=== PATIENT | male | born 1980 | race Two or more races ===

== ENCOUNTER 2024-06-12 12:56 | Outpatient (REF) | payer BC, SELFPAY ==
--- NOTE | ~2024-06-12 | US_ITS ---
Procedure: Endovascular ablation of the left greater saphenous vein with VenaSeal HISTORY: Varicose veins INDICATIONS: Symptomatically varicose veins left lower extremity. Symptoms include pain, aching, PROCEDURE/FINDINGS: Informed consent was obtained following a discussion of the risks and benefits of the procedure with the patient. The patient was placed supine on the ultrasound procedure table. Preliminary ultrasound demonstrates dilated refluxing left greater saphenous vein. A site was marked on the left medial leg . The left leg was sterilely prepped and draped. Following the administration of 1% lidocaine for local anesthesia, the greater saphenous vein was accessed with a 21-gauge micropuncture needle under direct ultrasound guidance. The needle was exchanged for the transitional dilator over a 0.018 guidewire. A 0.035 guidewire was then advanced to the saphenofemoral junction. The VenaSeal sheath was then inserted over the wire and positioned 10 cm from the saphenofemoral junction. VenaSeal glue was then delivered along the length of the greater saphenous vein while retracting the catheter with compression at the saphenofemoral junction to prevent glue from traveling forward. The delivery device was removed and hemostasis was achieved with manual compression. Postprocedure ultrasound demonstrates successful occlusion of the treated veins with widely patent and compressible saphenofemoral junction. Patient tolerated the procedure well without immediate complication. US/US venaseal vein closure IMPRESSION: Successful VenaSeal ablation of the left greater saphenous vein. Follow-up ultrasound in 5-10 days Electronically signed by: Joshua Heath MD 06/12/2024 02:26 PM WILLIAN NELSON
[2024-06-12] MEDS: Lidocaine HCl 1 % MPF 5 ML VIAL SUBCUT (14:23)
--- OUTSIDE RECORDS SUMMARY | 2024-06-12 15:32 | XMS_ITS | Data Portability ---
Author Organization [place] - [facility], Allergy Address [address] [address] Assessment Encounter Date Assessment Date Assessment LastModified by Organization Details LastModified Time 03/26/2024 03/26/2024 Patient presents for reevaluation of asymmetric hearing loss affecting the left ear only at 8000 Hz only. 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 Internal auditory canal normal with no evidence of retrocochlear pathology. Physical exam unrevealing. Audiometric testing demonstrates stability of the hearing loss. Will drop to annual monitoring. Patient to call sooner with new or worsening otologic symptoms. Advised him to alert his PCP to the CP angle finding; defer on management, referrals, and further workup to PCP. [email or web address] Not available 03/26/2024 15:24:07 Plan of Treatment Reminders Order Date Submit Date Provider Last Modified By Organization Details Last Modified Time Details Appointments None record ed. Lab None record ed. Referral None record ed. Procedures None record ed. Surgeries None record ed. Imaging None record ed. Medication Orders None record ed. Patient TargetsNo targets recorded. Patient InstructionsNo instructions recorded. Reason for Referral None Reported. Results Created Date Observation Date Name Description Value Unit Range Abnormal Flag Note LastModifiedBy Organization Detail LastModifiedTime 03/30/20 24 audio gram No observ ation record ed. BARCODE Not Available 2023 14:33:51 Result Notes None recorded. Problems Name Problem SNOMED Code Status Onset Date Resolution Date Notes Provider Name and Address Organization Details Recorded Time Acute pharyngit is 126002480 Active 2022 Sore throat (acute) NOS; Note: Date Diagnosed : 3 2:06 PM (J02.9) Not Available [facility] 4 02:35:35 Sensorine ural hearing loss 01513810 Active 2022 Sensorine ural hearing loss, unilatera l, left ear, with unrestric maribel hearing on the contralat eral side; Note: Date Diagnosed : 01/08/2023 4:47 PM (H90.42) Not Available [facility] 4 02:35:41 Tinnitus of right ear 87326447659 08 Active 2022 Tinnitus, right ear; Note: Date Diagnosed : 01/08/2023 4:47 PM (H93.11) Not Available [facility] 4 02:35:44 Obstructi ve sleep apnea syndrome 33659355 Active 2022 Obstructi ve sleep apnea (adult) (pediatri c); Note: Date Diagnosed : 10/31/2022 4:01 PM (G47.33) Not Available [facility] 4 02:35:42 Allergic rhinitis 58434036 Active 2022 Allergic rhinitis, unspecifi ed; Note: Date Diagnosed : 10/31/2022 4:01 PM (J30.9) Not Available [facility] 4 02:35:38 Deviated nasal septum 165740412 Active 2022 Deviated nasal septum; Note: Date Diagnosed : 10/31/2022 4:01 PM (J34.2) Not Available [facility] 4 02:35:48 Otalgia of left ear 6090277863 Active 2022 Otalgia, left ear; Note: Date Diagnosed : 3 2:00 PM (H92.02) Not Available [facility] 4 02:35:40 Chronic pharyngit is 097088 Active 2023 Chronic pharyngit is; Note: Date Diagnosed : 08/23/2023 4:56 PM (J31.2) Not Available [facility] 4 02:35:40 Problem Notes None recorded. Procedures Surgical History Date Name Laterality Status Provider Name and Address Organization Details Recorded Time 03/26/2024 Air & Speech Audio with Tymps (41372, 23216 & 42141) completed EDILBERTO BENZ, AUD 100 [facility],[place] [address], [place], [address], [facility] - [facility] 03/26/2024 11:43:08 Imaging Results Imaging Date Name Status LastModified by Organleonard you Details LastModified Time 03/30/2024 audiogram completed BARCODE Information no t available 03/30/2024 14:33:51 Procedure Notes None recorded. Medical Equipment None Reported. Medications Name Sig Start Date Stop Date Status Note LastModified by Organization Details LastModified Time celecoxib 200 mg capsule TAKE 1 CAPSULE BY MOUTH EVERY DAY active Not Available Not Available No t Available cyclobenza lakshmi 10 mg tablet TAKE 1 TABLET BY MOUTH IN THE EVENING FOR 14 DAYS NEEDED active Not Available Not Available No t Available cetirizine 10 mg tablet TAKE 1 TABLET BY MOUTH EVERY DAY active Not Available Not Available No t Available epinephrin e 0.3 mg/0.3 mL injection, auto-injec tor active Medicatio n ID: [id number] Br and Name: epinephri ne Send Method: E-Prescri bed Subs Allowed: subs OK Medica tionGener icName: epinephri ne Not Available Not Available Not Available methylpred nisolone 4 mg tablets in a dose pack FOLLOW PACKAGE DIRECTION S active Not Available Not Available No t Available fluticason e propionate 50 mcg/actuat ion nasal spray,susp ension active Medicatio n ID: [id number] Br and Name: fluticaso ne propionat e Send Method: E-Prescri bed Subs Allowed: subs OK Medica tionGener icName: fluticaso ne propionat e Not Available Not Available Not Available ipratropiu m bromide 21 mcg (0.03 %) nasal spray active Medicatio n ID: [id number] Br and Name: ipratropi um bromide S end Method: E-Prescri bed Subs Allowed: subs OK Medica tionGener icName: ipratropi um bromide Not Available Not Available Not Available azelastine 205.5 mcg (0.15 %) nasal spray [place] 2 spray into both nostrils twice a day 2022 active Medicatio n ID: [id number] Du ration Value: 30 Brand Name: azelastin e Send Method: E-Prescri bed Subs Allowed: subs OK [facility] devi e Not Available Not Available Not Available Ozempic 0.25 mg or 0.5 mg (2 mg/3 mL) subcutaneo us pen injector INJECT 0.5MG SUBCUTANE OUSLY ONCE A WEEK ON THE SAME DAY OF THE WEEK active Not Available Not Available No t Available Vitals Date Recorded Body height Body mass index (BMI) Body weight Provider Name and Address Organization Details Last Updated DateTime 03/26/2024 180.34 cm 32.1 kg/m2 620072.25 g Rea Mena [place] - [facility] 03/26/2024 11:58:21 Social History None recorded. Functional Status None recorded. Mental Status None recorded. Family History Nothing Reported. Medical History No medical history recorded. Past Encounters Encounter ID Performer Location Encounter Start Date Encounter Closed Date Diagnosis/Indication Diagnosis SNOMED-CT Code Diagnosis ICD10 Code Diagnosis Note [id number] ERICA KITCHEN MD [facility] [address] [address] 03/26/2024 11:04:58 03/26/2024 12:08:18 Sensorineural hearing loss 02799765 H90.42 Audiologic al evaluation results: Right ear: DNT Left ear: Normal auditory thresholds sloping at 8lHz to a moderate SNHL with {{excellen t* good fa ir poor no t measurable }} speech discrimina tion. Tympanomet ry: Right Ear:{{Type A Type As Type Ad Type C Type C, shallow & rounded Ty pe B Type B with large volume Cou ld not maintain a hermetic seal DNT#} } Left Ear:{{Type A* Type As Type Ad Type C Type C, shallow & rounded Ty pe B Type B with large volume Cou ld not maintain a hermetic seal}} Health Concerns Section Related Observation LastModified by Organization Detai ls LastModified Time None Recorded Concern Status LastModified by Organization Details LastModified Time None Recorded Advance Directives Directive None Recorded Payers Encounter Date Sequence Insurance Name Policy Number Policy Bone Covered Member ID Bone Member ID Guarantor Name 03/26/2024 1 [place]: [place]AYMON ([place]O) Warren Domínguez [id number] Warren Domínguez Notes Date Note Type Note Provider Name and Address Organization Details Recorded Time 03/26/2024 text/html 43-year-old male with 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 He reports continued intermittent non-pulsatile tinnitus in the left ear, buzzing noise well tolerated with masking. Hearing subjectively unchanged. No otalgia nor otorrhea. ERICA KITCHEN MD [address] [place] [address], [place], [address], [facility] - [facility] 03/26/2024 17:02:31
--- OUTSIDE RECORDS SUMMARY | 2024-06-12 15:32 | XMS_ITS | Continuity of Care Document ---
Author Organization [place] - [facility], [facility] Address [address] [place] [address] Assessment Encounter Date Assessment Date Assessment LastModified [...] Organization Details Recorded Time Acute pharyngit is 987032888 Active 2022 Sore throat (acute) NOS; Note: Date Diagnosed : 3 2:06 PM (J02.9) Not Available [facility] 4 02:35:35 Sensorine ural hearing loss 48659861 Active 2022 Sensorine ural hearing loss, unilatera l, left ear, with unrestric maribel hearing on the contralat eral side; Note: Date Diagnosed : 01/08/2023 4:47 PM (H90.42) Not Available [facility] 4 02:35:41 Tinnitus of right ear 95246979278 08 Active 2022 Tinnitus, right ear; Note: Date Diagnosed : 01/08/2023 4:47 PM (H93.11) Not Available [facility] 4 02:35:44 Obstructi ve sleep apnea syndrome 80409266 Active 2022 Obstructi ve sleep apnea (adult) (pediatri c); Note: Date Diagnosed : 10/31/2022 4:01 PM (G47.33) Not Available [facility] 4 02:35:42 Allergic rhinitis 13637212 Active 2022 Allergic rhinitis, unspecifi ed; Note: Date Diagnosed : 10/31/2022 4:01 PM (J30.9) Not Available [facility] 4 02:35:38 Deviated nasal septum 265950471 Active 2022 Deviated nasal septum; Note: Date Diagnosed : 10/31/2022 4:01 PM (J34.2) Not Available [facility] 4 02:35:48 Otalgia of left ear 8906981664 Active 2022 Otalgia, left ear; Note: Date Diagnosed : 3 2:00 PM (H92.02) Not Available [facility] 4 02:35:40 Chronic pharyngit is 916298 Active 2023 Chronic pharyngit is; Note: Date Diagnosed : 08/23/2023 4:56 PM (J31.2) Not Available [facility] 4 02:35:40 Problem Notes None recorded. Procedures Surgical History Date Name Laterality Status Provider Name and Address Organization Details Recorded Time 03/26/2024 Air & Speech Audio with Tymps (59375, 27276 & 45775) completed EDILBERTO TUYET, AUD 100 [facility], [place], [address], [place] - [facility] 03/26/2024 11:43:08 Imaging Results None recorded. Procedure Notes None recorded. Medical Equipment None [...] injection, auto-injec tor active Medicatio n ID: [id number] Br and Name: epinephri ne Send Method: E-Prescri bed Subs Allowed: subs OK Medica tionGener icName: epinephri ne Not Available Not Available Not Available methylpred nisolone 4 mg tablets in a dose pack FOLLOW PACKAGE DIRECTION S active Not Available Not Available No t Available fluticason e propionate 50 mcg/actuat ion nasal spray,susp ension active Medicatio n ID: [id number] Br and Name: fluticaso ne propionat e Send Method: E-Prescri bed Subs Allowed: subs OK Medica tionGener icName: fluticaso ne propionat e Not Available Not Available Not Available ipratropiu m bromide 21 mcg (0.03 %) nasal spray active Medicatio n ID: [id number] Br and Name: ipratropi um bromide S end Method: E-Prescri bed Subs Allowed: subs OK Medica tionGener icName: ipratropi um bromide Not Available Not Available Not Available azelastine 205.5 mcg (0.15 %) nasal spray [place] 2 spray into both nostrils twice a day 2022 active Medicatio n ID: [id number] Du ration Value: 30 Brand Name: azelastin e Send Method: E-Prescri bed Subs Allowed: subs OK Medica tionGener icName: azelastin e Not Available Not Available Not Available [...] Updated DateTime 03/26/2024 180.34 cm 32.1 kg/m2 659978.25 g Rea Mena [place] - [facility] 03/26/2024 11:58:21 Social History None recorded. Functional Status None recorded. Mental Status None recorded. Family History Nothing Reported. Medical History No medical history recorded. Past Encounters Encounter ID Performer Location Encounter Start Date Encounter Closed Date Diagnosis/Indication Diagnosis SNOMED-CT Code Diagnosis ICD10 Code Diagnosis Note [id number] ERICA KITCHEN MD [facility] [address] [address] 03/26/2024 11:04:58 03/26/2024 12:08:18 Sensorineural hearing loss [id number] H90.42 Audiologic al evaluation results: Right ear: [...] by Organization Details LastModified Time None Recorded Payers Encounter Date Sequence Insurance Name Policy Number Policy Bone Covered Member ID Bone Member ID Guarantor Name 03/26/2024 1 YENNI: RAYMON (PPO) Warren Domínguez [id number] Warren Domínguez Notes Date Note Type Note Provider Name and Address Organization Details Recorded Time 03/26/2024 text/html 43-year-old male with 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 He reports continued intermittent non-pulsatile tinnitus in the left ear, buzzing noise well tolerated with masking. Hearing subjectively unchanged. No otalgia nor otorrhea. ERICA KITCHEN MD [address] [place] [address], [place], [address], [facility] - [facility] 03/26/2024 17:02:31
--- OUTSIDE RECORDS SUMMARY | 2024-06-12 15:32 | XMS_ITS | Continuity of Care Document ---
Author Organization [facility] ter Address [address] [place] [address]- Care Team Providers Care Arcade Attendant Name Role Phone Agnes ACKERMAN, Tiffany Field Primary Care Physician [id number] Date(s): 04/03/24 - 05/24/[address] [address]- Attending Physician: Fabricio Johnson MD Admitting Physician: Fabricio Johnson MD Referring Physician: Fabricio Johnson MD Encounter Type: Pre-Outpt Allergies, Adverse Reactions, Alerts No Known Allergies Medications fluticasone 50 mcg/inh nasal spray 1 sprays, Nares, Both, 2 times a day, # 16 Gm, 11 Refills, Maintenance, 09/26/22 10:36:00 AM EDT, [place], [id number], Partial fill upon patient request if the prescription is for a schedule II opioid drug., 1 sprays Nares, Both 2 times a day,x30 days Start Date: 09/26/22 Stop Date: 09/21/23 Status: Ordered Quantity: 16.0 Unit: g Repeat number: 12 Indication: Obstructive sleep apnea (adult) (pediatric) ipratropium nasal 21 mcg/inh spray 1 sprays = 21 mcg, Nares, Both, Daily at bedtime, # 30 mL, 3 Refills, Maintenance, 08/30/22 2:38:00 PM EDT, [id number], Partial fill upon patient request if the prescription is for a schedule II opioid drug., 1 sprays Nares, Both Daily at bedtime Start Date: 08/30/22 Status: Ordered Quantity: 30.0 Unit: mL Repeat number: 4 Indication: Obstructive sleep apnea (adult) (pediatric) Problem List Condition Confirmation Course Effective Dates Status H ealth Status Informant Leg cramps Confirmed Active Hyperlipidemia Confirmed Active Hypertension Confirmed Active Migraines Confirmed Active Obese class I Confirmed Active Obstructive sleep apnea Confirmed Active Delayed sleep phase syndrome Confirmed Active Fatty liver Confirmed Active Patient Care team information Care Team Personnel Name: Tiffany Alarcon MD, V Position: Reference Physician Member Role: PCP Address: [address] [place], [place] [address] [place] [address] [employer]: Name: Fabricio Johnson MD Position: [facility] Physician - Gastroenterology Med Service: Gastroenterology Member Role: Referring Physician Address: [address] [place] [address], [address] [facility] [place] [address]- [employer]: Care Team Related Persons Name: RACHEL DIAZ Insurance Providers Guarantor name: LARS DIAZ Health Plan Information #: 1 Payer: [employer] Member Number: [id number] Policy Number: NA Group Number: [id number] Health Plan Information #: 2 Payer: [employer] Member Number: [id number] Policy Number: NA Group Number: [id number]
== END 2024-06-12 12:57 | disposition home or self-care (01) ==
LOC: HO.US 12:56
PROVIDERS: PCP Family Medicine; Visit Provider Student in an Organized Health Care Education/Training Program
DX: I83.892 Varicose veins of left lower extremity with other complications (principal)
CPT/HCPCS: 36482; J2003

== ENCOUNTER → 2024-06-12 13:00 | Outpatient (BNV) | payer BC, SELFPAY | PROVIDERS: PCP Family Medicine; Visit Provider Student in an Organized Health Care Education/Training Program | DX: I83.892 Varicose veins of left lower extremity with other complications (principal) | CPT/HCPCS: 36482 ==

== ENCOUNTER → 2024-06-17 10:12 | Outpatient (BNV) | payer BC, SELFPAY | PROVIDERS: PCP Family Medicine; Visit Provider Radiology Diagnostic Radiology | DX: I82.812 Embolism and thrombosis of superficial veins of left lower extremity (principal) | CPT/HCPCS: 93971 ==

== ENCOUNTER 2025-02-18 12:44 | Outpatient (REF) | payer BC, SELFPAY ==
--- OUTSIDE RECORDS SUMMARY | 2025-02-18 17:31 | XMS_ITS | Encounter Summary ---
Author Organization [facility] Address [address] [place] [address] [place] [address] Phone Care Team Providers Care Public Welfare Director Name Role Phone Tiffany Alarcon MD Unavailable [phone] Tiffany Alarcon MD Primary Care Provider + Encounter Details Date Type Department Care Team (Latest Contact Info) Description 12/26/2022 Transcribe Orders Virtual Department [address] [place] [address] Johanny Montalvo PA-C [address] [place], [place] [id number] [email or web address] Fatty liver (Primary Dx); Elevated LFTs Social History Tobacco Use Types Packs/Day Years Used Date Smoking Tobacco: Never Smokeless Tobacco: Never Alcohol Use Standard Drinks/Week Comments Not Currently 0 (1 standard drink = 0.6 oz pure alcohol) stopped in 2021 (fatty liver diagnosis) Child or Family Care Answer Date Record ed Do you have problems with on e of the following making it difficult for you to work, study, or receive health care? No 09/20/2021 Education Answer Date Recorded Are you interested in help w ith more adult education (for example, completing high school, GED, job training, learning the Namibian language, technical skills, or developing parenting skills)? No 09/20/2021 Are you concerned about learning? Not on file 09/20/2021 No 09/20/2021 Yes 09/20/2021 Food Answer Date Recorded Within the past 6 months we worried whether our food would run out before we got money to buy more. Never True 09/20/2021 Within the past 6 months the food we bought just didn't last and we didn't have enough money to get more. Never True Residential Stability Answer Date Recor ded What is your housing situation today? I have sandra worthy 09/20/2021 How many times have you moved in the past 12 mon ths? One time 09/20/2021 Paying for Meds Answer Date Recorded Do you have trouble paying for medicines? No 09/20/2021 Paying Utility Bills Answer Date Record ed Do you have trouble paying your heating or elect ricity bill? No 09/20/2021 Transportation Answer Date Recorded Has the lack of transportati on kept you from medical appointments or from getting medications? No 09/20/2021 Unemployment Answer Date Recorded Are you currently unemployed or working on a part-time or temporary basis, and looking for work? No 09/20/2021 Digital Access Answer Date Recorded No 10/19/2022 No 10/19/2022 No 10/19/2022 Reliable internet access at home? Not on file 10/19/2022 Device with a working camera? Not on file Sex and Gender Information Value Date Recorded Sex Assigned at Not on file Legal Sex Male 1:46 PM EST Gender Identity Not on file Sexual Orientation Not on file documented as of this encounter Plan of Treatment Upcoming Encounters Date Type Department Care Team (Late st Contact Info) Description 03/10/2025 11:30 AM EDT Office Visit [facility] [address] [place] [address] Tiffany Alarcon MD 234 [facility], [address] [place] [address] [email or web address] documented as of this encounter Results * US LIVER WITH ELASTOGRAPHY (01/03/2023 11:18 AM EDT) Anatomical Region Laterality Modality Abdomen Ultrasound 01/04/2023 12:1 7 AM EDT Impressions 01/04/2023 12:20 AM EDT Hepatic steatosis. No focal hepatic lesion or biliary duct dilatation. The IQR to median ratio is less than 15% and the measure of liver stiffness is therefore acceptable. The median shear wave speed is 1.47 m/s. This is less than 1.7 m/s, which in the absence of other known clinical signs, rules out compensated advanced chronic liver disease. RECOMMENDATION: If there are known clinical signs of compensated advanced chronic liver disease, further testing for confirmation could be considered. [facility]I[employer]Y OF [facility]IOLOGISTS IN ULTRASOUND CONSENSUS: In the setting of elevated liver function tests, nonfasting, vascular congestion, etc., the stage of liver fibrosis may be overestimated. In some patients with NAFLD, the cut-off values for compensated advanced chronic liver disease may be lower. In causes other than viral hepatitis and NAFLD, the cut-off values are not well established. Narrative 01/04/2023 12:20 AM EDT US LIVER WITH ELASTOGRAPHY TECHNIQUE: Focused ultrasound evaluation of the liver. Volumetric sweeps were obtained and reviewed. COMPARISON: US ABDOMEN LIMITED RIGHT UPPER QUADRANT FINDINGS: LIVER: Increased echogenicity. No lesions. Portal vein patent with normal direction of flow. Hepatic veins patent. BILE DUCTS: No dilated intrahepatic biliary radicles. Common bile duct measures 3 mm. GALLBLADDER: No gallstones, wall thickening, or pericholecystic fluid. RIGHT KIDNEY: 13.3 cm. Normal echogenicity. No hydronephrosis. PANCREAS: No ductal dilatation. AORTA: Normal caliber where imaged. IVC: Normal proximally, not imaged distally. OTHER: None. ELASTOGRAPHY: Liver stiffness measurements were obtained in the right hepatic lobe on a Padilla ultrasound machine. 2D shear wave elastography technique was utilized following SRU guidelines. 10 valid measurements were obtained. Median shear wave speed is: 1.47 m/s. IQR to median ratio: 14%. Procedure Note Malinda Pinedo MD - 01/04/2023 US LIVER WITH ELASTOGRAPHY TECHNIQUE: Focused ultrasound evaluation of the liver. Volumetric sweeps wereobtained and reviewed. COMPARISON: US ABDOMEN LIMITED RIGHT UPPER QUADRANT FINDINGS: LIVER: Increased echogenicity. No lesions. Portal vein patent with normaldirection of flow. Hepatic veins patent. BILE DUCTS: No dilated intrahepatic biliary radicles. Common bile ductmeasures 3 mm. GALLBLADDER: No gallstones, wall thickening, or pericholecystic fluid. RIGHT KIDNEY: 13.3 cm. Normal echogenicity. No hydronephrosis. PANCREAS: No ductal dilatation. AORTA: Normal caliber where imaged. IVC: Normal proximally, not imaged distally. OTHER: None. ELASTOGRAPHY: Liver stiffness measurements were obtained in the righthepatic lobe on a Padilla ultrasound machine. 2D shear wave elastographytechnique was utilized following SRU guidelines. 10 valid measurements were obtained. Median shear wave speed is: 1.47m/s. IQR to median ratio: 14%. IMPRESSION: Hepatic steatosis. No focal hepatic lesion or biliary duct dilatation. The IQR to median ratio is less than 15% and the measure of liverstiffness is therefore acceptable. The median shear wave speed is 1.47 m/s. This is less than 1.7 m/s, whichin the absence of other known clinical signs, rules out compensatedadvanced chronic liver disease. RECOMMENDATION: If there are known clinical signs of compensated advanced chronic liverdisease, further testing for confirmation could be considered. SOCIETY OF RADIOLOGISTS IN ULTRASOUND CONSENSUS: In the setting of elevated liver function tests, nonfasting, vascularcongestion, etc., the stage of liver fibrosis may be overestimated. Insome patients with NAFLD, the cut-off values for compensated advancedchronic liver disease may be lower. In causes other than viral hepatitisand NAFLD, the cut-off values are not well established. Johanny Montalvo PA-C IMOlivia US ABDOMEN Final Result documented in this encounter Visit Diagnoses Diagnosis Fatty liver- Primary Other chronic nonalcoholic liver disease Elevated LFTs Other abnormal blood chemistry Fatty liver Other chronic nonalcoholic liver disease Elevated LFTs Other abnormal blood chemistry documented in this encounter Additional Health Concerns Assessment Noted Time PHQ-2 Depression Total Score: 1 09/27/19 23 2:51 PM EDT documented as of this encounter Care Teams Public Welfare Director Relationship Specialty Start Date End Date Tiffany Alarcon MD [address] [place] [address], [address] [place] [phone] [email or web address] PCP - General Family Medicine 12/26/22 Tiffany Alarcon MD [address] [place] [address] [address] [place] [address] [email or web address] Insurance Assigned Provider 08/31/23 documented as of this encounter Additional Source Comments The information contained in this document represents components of the legal health record. It is not the complete legal health record.[facility]
--- OUTSIDE RECORDS SUMMARY | 2025-02-18 17:31 | XMS_ITS | Encounter Summary ---
Author Organization [facility] Address [address] [place] [address] Phone Care Team Providers Care Lumber Press Operator Name Role Phone Tiffany Alarcon MD Unavailable [phone] Tiffany Alarcon MD Primary Care Provider + Reason for Referral * Outpatient Procedure - Closed Specialty Diagnoses / Procedures Referred By Janak andrews Referred To Contact Radiology Diagnoses Fatty liver Elevated LFTs Bloating Procedures NM Gastric Emptying Johanny Montalvo PA-C Phone: tel: fax: [email or web address] Referral ID Status Reason Start Date Expiration Date Visits Re quested Visits Authorized [id number] Closed 03/21/2023 1 1 Encounter Details Date Type Department Care Team (Latest Contact Info) Description 03/21/2023 Transcribe Orders Virtual Department [address] [place] [address] Johanny Montalvo PA-C [address] [place] [address] [email or web address] Fatty liver (Primary Dx); Elevated LFTs; Bloating Social History Tobacco Use Types Packs/Day Years [...] high school, GED, job training, learning the Vietnamese language, technical skills, or developing parenting skills)? [...] your housing situation today? I have sandra sing 09/20/2021 How many times have you moved in the past 12 sat th? One time 09/20/2021 Paying for Meds Answer [...] Upcoming Encounters Date Type Department Care Team (Gareth st Contact Info) Description 03/10/2025 11:30 AM EDT Office Visit [facility] Medicine [address] [place] [address] Tiffany Alarcon MD [address] [place] [address], [address] [place] [address] [email or web address] documented as of this encounter Results * NM GASTRIC EMPTYING SOLID PHASE (04/22/2023 1:23 PM EST) Anatomical Region Laterality Modality Abdomen, Pelvis Nuclear Medicine 04/22/2023 3:39 PM EST Impressions 04/22/2023 3:40 PM EST Gastric emptying study within normal limits. Narrative 04/22/2023 3:40 PM EST NM GASTRIC EMPTYING SOLID PHASE Radionuclide gastric emptying scan: COMPARISON: None TECHNIQUE: A dose of 1.0 mCi technetium 99m sulphur colloid was given orally mixed with a standard meal. Intermittent upright imaging of the abdomen was performed immediately, and at 1 and 2 hours, and at 4 hours if indicated. 100% of the standardized meal was consumed. FINDINGS: Gastric emptying was: 1 hr: 4.5% 2 hrs: 45.6% 4 hrs: 98.6% According to accepted international standards using this technique, median normal values for emptying are: 31% at 1 hr, 76% at 2 hrs, and 99% at 4 hours. 5th percentile values for emptying are: 10% at 1 hr, 40% at 2 hrs, and 90% at 4 hours. These values apply for ingestion of 50% or greater of the standard meal (PMID: 15391649) and approximate the normative emptying values of [employer] (PMID: [id number]). Procedure Note Malinda Pinedo MD - 04/22/2023 NM GASTRIC EMPTYING SOLID PHASE Radionuclide gastric emptying scan: COMPARISON: None TECHNIQUE: A dose of 1.0 mCi technetium 99m sulphur colloid was given orally mixedwith a standard meal. Intermittent upright imaging of the abdomen wasperformed immediately, and at 1 and 2 hours, and at 4 hours if indicated.100% of the standardized meal was consumed. FINDINGS: Gastric emptying was: 1 hr: 4.5% 2 hrs: 45.6% 4 hrs: 98.6% According to accepted international standards using this technique, mediannormal values for emptying are: 31% at 1 hr, 76% at 2 hrs, and 99% at 4 hours. 5th percentile values for emptying are: 10% at 1 hr, 40% at 2 hrs, and 90% at 4 hours. These values apply for ingestion of 50% or greater of the standard meal(PMID: 63979830) and approximate the normative emptying values of[facility] (PMID: [id number]). IMPRESSION: Gastric emptying study within normal limits. Johanny Montalvo PA-C IMG IN ABDOMEN Final Result documented in this encounter Visit Diagnoses Diagnosis Fatty liver- Primary Other chronic nonalcoholic liver disease Elevated LFTs Other abnormal blood chemistry Bloating Flatulence, eructation, and gas pain Fatty liver Other chronic nonalcoholic liver disease Elevated LFTs Other abnormal blood chemistry Bloating Flatulence, eructation, and gas pain documented in this encounter Additional Health Concerns Assessment Noted Time PHQ-2 Depression Total Score: 1 09/27/19 23 2:51 PM EDT documented as of this encounter Care Teams Lumber Press Operator Relationship Specialty Start Date End Date Tiffany Alarcon MD [address] [address] [email or web address] PCP - General Family Medicine 12/26/22 Tiffany Alarcon MD 234 [facility] [address] [place] [address] [email or web address] Insurance Assigned Provider 08/31/23 documented as of this encounter Additional Source Comments The information contained in this document represents components of the legal health record. It is not the complete legal health record.[facility]
--- OUTSIDE RECORDS SUMMARY | 2025-02-18 17:31 | XMS_ITS | Encounter Summary ---
Author Organization [facility] Address [address] [place] [address] [place] [address] Phone Care Team Providers Care Product Inspection Supervisor Name Role Phone Tiffany Alarcon MD Primary Care Provider + Tiffany Alarcon MD Unavailable [phone] Tiffany Alarcon MD Primary Care Provider + Encounter Details Date Type Department Care Team (Late st Contact Info) Description 05/31/2022 Procedure Pass [facility], [address] [phone] Social History Tobacco Use Types Packs/Day Years Used Date Smoking Tobacco: Never Smokeless Tobacco: Never Alcohol Use Standard Drinks/Week Comments Not Asked 0 (1 standard drink = 0.6 oz pur e alcohol) 2-3 drinks/week Child or Family Care Answer Date Record ed Do you have problems with on e of the following making it difficult for you to work, study, or receive health care? No 09/20/2021 Education Answer Date Recorded Are you interested in help w ith more adult education (for example, completing high school, GED, job training, learning the Mongolian language, technical skills, or developing parenting skills)? [...] basis, and looking for work? No 09/20/2021 Sex and Gender Information Value Date Recorded Sex Assigned at Not on file Legal Sex Male 1:46 PM EST Gender Identity Not on file Sexual Orientation Not on file documented as of this encounter Plan of Treatment Upcoming Encounters Date Type Department Care Team ([facility] st Contact Info) Description 03/10/2025 11:30 AM EDT Office Visit [facility] Medicine [address] [place] [address] Tiffany Alarcon MD [address] [place] [phone] documented as of this encounter Visit Diagnoses Not on filedocumented in this encounter Additional Health Concerns Assessment Noted Time PHQ-2 Depression Total Score: 2 09/21/19 22 1:01 PM EDT documented as of this encounter Care Teams Product Inspection Supervisor Relationship Specialty Start Date End Date Tiffany Alarcon MD PCP - General Family Medicine 09/08/21 12/25/22 Tiffany Alarcon MD 234 [facility] 7 [place] [address] [email or web address] PCP - General Family Medicine 12/26/22 Tiffany Alarcon MD [address] [place] [address], [facility] 7 [place] [address] [email or web address] Insurance Assigned Provider 08/31/23 documented as of this encounter Additional Source Comments The information contained in this document represents components of the legal health record. It is not the complete legal health record.[facility]
--- OUTSIDE RECORDS SUMMARY | 2025-02-18 17:31 | XMS_ITS | Patient Health Record ---
Author Organization [facility] Address [address] [place] [id number] Care Team Providers Care Last Dipper Name Role Phone Dima Kang Primary Care Provider UnavailJeremiah Duque Unavailable [phone] Allergies No Known Allergies Reason For Referral No Information Medications Medication SIG (Take, Route, Frequency, Duration) Notes Start Date End Date Status Methocarbamol - as directed Ac tive Melatonin Quick Dissolve 10 MG as directed Sublingual gummies Activ e Emgality 120 MG/ML ADMINISTER 1 ML UNDE R THE SKIN EVERY 28 DAYS Subcutaneous; Duration: 28 Active Problems Problem Type SNOMED Code ICD Code Onset Dates Problem Status W/U Status Risk Notes Problem Non-24 hour sleep-wake cycle (disorder) (964200604) Circadian rhythm sleep disorder, 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 Problem Circadian rhythm sleep disorder of shift work type (225716538) Circadian rhythm sleep disorder, 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 confirmed Problem Air leakage (40755145) Other air leak (J93.82) Active confirmed Problem Snoring (27621594) Snoring (R06.83) Active confirmed Problem Obstructive sleep apnea syndrome (59393145) RAMIRO (obstructive sleep apnea) (G47.33) Active confirmed Problem Obesity (675050694) Obesity (E66.9) Active confirmed Problem Apnea (1367949) Apnea (R06.81) Active confirmed Problem Idiopathic sleep related non-obstructive alveolar hypoventilation (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) Sleep related hypoxia (G47.34) Active confirmed exacerbation Problem Insomnia (042029873) Insomnia, unspecified type (G47.00) Active confirmed Problem Migraine (74952050) Migraine without status migrainosus, not intractable, unspecified migraine type (G43.909) Active confirmed Plan Of Treatment No Information Insurance Providers Payer Name Payer Address Payer Phone Subscriber Number Group Number Insured Name Patient Relationship to Insured Coverage Start Date Coverage End Date [facility] [address] [place] [address] [id number] Warren Domínguez Self - patient is the insured Medical (General) History Medical History History ICD Code Hypertension Surgical History Surgery Date(Month/Year) R index finger surgery 1996 L wrist surgery 2001 L knee meniscus surgery 2014 R elbow surgery x2 (tendon repair) 2018
--- OUTSIDE RECORDS SUMMARY | 2025-02-18 17:31 | XMS_ITS | Patient Health Record ---
Author Organization [facility] [address] [place] [address] [address] Address [address] [place] [id number] Care Team Providers Care Reeler Operator Name Role Phone Tamir ACKERMAN, Candida Primary Care Provider Marbella Delong MD, Bebe Unavailable [phone] Reason For Referral No Information Medications Medication SIG (Take, Route, Frequency, Duration) Notes Start Date End Date Status Botox 200 UNIT Chronic Migraine- 15 5units in 31sites over 7 specific head/neck muscle areas- frontal, temporal, occipital, trapezius, cervical paraspinal,etc. Discard 45units. q12 weeks Injection 08/25/2018 Active Amitriptyline HCl 25 MG take 50 mg PO qhs. Oral Active Anaprox DS 550 MG take 1 tablet PO wit h food as needed for severe headache every 12 hours, max 2 per day, not more than 3 days per week. Oral 06/25/2018 Activ e Problems Problem Type SNOMED Code ICD Code Onset Dates Problem Status W/U Status Risk Notes Problem New daily persistent headache (291305069128119 ) New daily persistent headache (NDPH) (G44.52) 8 Active confirmed Problem Primary thunderclap headache (294721585784767 ) Primary thunderclap headache (G44.53) 8 Active confirmed Problem Cerebral cysts (28028115) Cerebral cysts (G93.0) 9 Active confirmed Problem Visual disturbance (20160138) Unspecified visual disturbance (H53.9) 8 Active confirmed Problem Headache (68863518) Headache (R51) 8 Active confirmed Plan Of Treatment No Information Insurance Providers Payer Name Payer Address Payer Phone Subscriber Number Group Number Insured Name Patient Relationship to Insured Coverage Start Date Coverage End Date [facility] [address] [address] [place] [address] [id number] Warren Domínguez Self - patient is the insured Medical (General) History Surgical History Surgery Date(Month/Year) right forearm tendon repair PAST SurgHX Till05/21/2018 removal of Bursa PAST SurgHX Till05/21/2018 left knee injury PAST SurgHX Till05/21/2018 wrist cyst PAST SurgHX Till05/21/2018
--- OUTSIDE RECORDS SUMMARY | 2025-02-18 17:31 | XMS_ITS | Clinical Summary ---
Author Organization [facility] Address [address] [place] [address] [place] [phone] Phone Care Team Providers Care Chain Testing Machine Operator Name Role Phone Tiffany Alarcon MD Unavailable [phone] Tiffany Alarcon MD Primary Care Provider + Allergies Active Allergy Reactions Criticality Noted Date Comments Atorvastatin Hepatotoxicity Low 09/20/2021 Liver enzyme elevation Marijuana/Cannabinoid Shortness Of Breath High 09/26 SOB/throat tightness when around secondhand smoke Medications polyethylene glycol (MIRALAX) 17 gram/dose powderIndications :Chronic constipation Take 17 g by mouth daily. 289 g 1 2 Active EPINEPHrine (EPIPEN 2-ELIAS) 0.3 mg/0.3 mL auto-injectorIndi cations:Allergic reaction, sequela Inject 0.3 mL (0.3 mg total) into the muscle as needed for anaphylaxis . 2 each 2 3 Active cetirizine (ZYRTEC) 10 MG tabletIndications :Pruritus Take 1 tablet (10 mg total) by mouth daily. 30 tablet 11 4 Active tirzepatide, weight loss, (ZEPBOUND) 2.5 mg/0.5 mL subcutaneous penIndications:Cl ass 1 obesity due to excess calories without serious comorbidity with body mass index (BMI) of 33.0 to 33.9 in adult,RAMIRO (obstructive sleep apnea) Inject 0.5 mL (2.5 mg total) under the skin every 7 days for 4 doses. 2 mL 5 02/25/20 25 Active OZEMPIC 0.25 mg or 0.5 mg (2 mg/3 mL) subcutaneous injection penIndications:Pr ediabetes Inject 0.5 mg under the skin every 7 days. 3 mL 2 5 02/03/20 25 Discontinu ed(No longer taking) Active Problems Problem Noted Date Diagnosed Date Migraine without aura and wi thout status migrainosus, not intractable 09/21/2021 Assessment & Plan (09/21/2021 10:30 PM EDT): Doing well with emgality Refer to neuro Should continue w/ current neuro in [place] until established locally Prn excedrin for rare breakthrough Moderate mixed hyperlipidemia not requiring stat in therapy 09/21/2021 Assessment & Plan (09/21/2021 10:14 PM EDT): Check FLP Class 1 obesity due to exces s calories without serious comorbidity with body mass index (BMI) of 33.0 to 33.9 in adult 09/21/2021 Assessment & Plan (02/02/2025 3:53 PM EDT): Warren presents for BMI of 33.6. He was on Ozempic but insurance no longer covers this. He is requesting for additional medication. I wrote for Zepbound-to be used as directed-side effects discussed. I sent a message to my nurses regarding prior Auth for this medication. He will follow-up with his PCP in a month-he will go for labs prior to next visit. He will call if there are any other issues or concerns. He understands and agrees. Assessment & Plan (09/21/2021 10:14 PM EDT): DM and lipid screen Fatty liver 09/21/2021 Assessment & Plan (09/21/2021 10:31 PM EDT): Check LFT Chronic constipation 09/21/2021 Assessment & Plan (09/21/2021 10:32 PM EDT): Discussed mgmt Good hydration and high-fiber diet miralax daily, titrate for effect Ingrown toenail of both feet 09/21/2021 Assessment & Plan (09/21/2021 10:33 PM EDT): minmal inflammation today Daily soak and gentle lifting Goal to grow nail out past nail fold and cut straight across to prevent recurrences Check shoes for fit Lateral epicondylitis of right elbow 09/21/2021 Assessment & Plan (09/21/2021 10:27 PM EDT): Continue NSAID, ice, and support strap while avoiding aggravating activities Will return to ortho to discuss steroid injection if persisting, would advise ortho with surgery on elbow in past RAMIRO (obstructive sleep apnea) 09/21/2021 Assessment & Plan (02/02/2025 3:52 PM EDT): Warren has obstructive sleep apnea-he is currently on Ozempic but he notes that his insurance no longer is covering this med. I we will transition him over to Zepbound-2.5 mg injections once a week and I ordered repeat labs to be done prior to next visit. He will follow-up with his PCP in a month. He will call if there are any other issues or concerns or side effects to this medication. He understands and agrees. Assessment & Plan (09/21/2021 10:14 PM EDT): Working w/ pulm for mask fitting. Discussed local referral vs ongoing care w/ [facility]. Will continue w/ current pulm . Prediabetes 09/21/2021 Encounters Date Type Department Care Team Description 02/02/2025 3:53 PM EDT - 02/02/2025 11:59 PM EDT Hospital Encounter [facility] [address] [facility] [place] [address] Dav Luevano, DO Discharge Disposition: Home or Self Care 02/02/2025 3:30 PM EDT Office Visit [facility] [address] [place] [address] Dav Luevano, DO Class 1 obesity due to excess calories without serious comorbidity with body mass index (BMI) of 33.0 to 33.9 in adult (Primary Dx); RAMIRO (obstructive sleep apnea) 02/02/2025 Telephone [facility] [address] [place] [address] Suzette Coello Medication Prior Authorization (Zepbound 2.5 mg ) 02/02/2025 Telephone [facility] [address] [place] [address] Dav Luevano DO 01/19/2025 Telephone [facility] [address] [place] [address] Tiffany Alarcon MD Medication Prior Authorization (Prior Authorization for OZEMPIC 0.25 mg or 0.5 mg (2 mg/3 mL) subcutaneous injection pen) 12/25/2024 8:52 AM EDT - 12/25/2024 11:59 PM EDT Hospital Encounter [facility] [address] [place] [address] Johanny Enamorado FNP Discharge Disposition: Home or Self Care 12/22/[address] [address] Tiffany Alarcon MD Medication Refill from Last 3 Months Immunizations Immunization Administration Dates Next Due COVID-19 (Pre-03/18) Moderna Vaccine, mRNA, PF 04/28/2021,08/04/2020,07/07/2020 COVID-19 Pfizer Vaccine 5yr-11yr 03/12/2023 Influenza Quadrivalent Preservative Free IM 02/24,02/23/2020,03/08/2016 Influenza Quadrivalent w/ Preservative IM 2018,05/29/2017 Influenza, Unspecified Formulation 02/27/2023, Tdap 03/12/2023 Family History Medical History Relation Comments Diabetes Father Stroke Father Cancer Maternal Uncle 2 uncles with li miguel ángel cancer diagnosed in 2021. One with cirrhosis Hyperlipidemia Mother Hypertension Mother Colon cancer Neg Hx Colon polyps Neg Hx Prostate cancer Neg Hx Relation Status Comments Father Maternal Uncle Mother Alive Social History Tobacco Use Types Packs/Day Years Used Date Smoking Tobacco: Never Smokeless Tobacco: Never Tobacco Cessation:Counseling Given: Not Answered Alcohol Use Standard Drinks/Week Comments Not Currently 0 (1 standard drink = 0.6 oz pure alcohol) stopped in 2021 (fatty liver diagnosis) Child or Family Care Answer Date Record ed Do you have problems with on e of the following making it difficult for you to work, study, or receive health care? Childcare 09/24/2023 Education Answer Date Recorded Are you interested in more education? Not on gui e 09/21/2023 Are you concerned about learning? Not on file 09/21/2023 No 09/21/2023 No 09/21/2023 Food Answer Date Recorded Within the past 6 months we worried whether our food would run out before we got money to buy more. Sometimes True 024 Within the past 6 months the food we bought just didn't last and we didn't have enough money to get more. Often True 08/27 Residential Stability Answer Date Recor ded What is your housing situation today? I have sandra sing 09/24/2023 How many times have you move d in the past 12 months? Zero (I did not move) 09/24/2023 Paying for Meds Answer Date Recorded Do you have trouble paying for medicines? No 09/24/2023 Paying Utility Bills Answer Date Record ed Do you have trouble paying your heating or elect ricity bill? No 09/24/2023 Transportation Answer Date Recorded Has the lack of transportati on kept you from medical appointments or from getting medications? No 09/24/2023 Unemployment Answer Date Recorded Are you currently unemployed or working on a part-time or temporary basis, and looking for work? No 09/24/2023 Digital Access Answer Date Recorded No 09/24/2023 Yes 09/24/2023 Do you have reliable internet access at home? Ye s 09/24/2023 Do you have a device (e.g., phone, tablet, computer) with a working camera? Yes 09/24/2023 Intimate Partner Violence Answer Date R ecorded Denied Basic Needs Not on file 09/24/2023 In the past 12 months have y ou been in a relationship with a person who hurts, threatens, or tries to control you? No 09/24/2023 Worried food would run out Not on file 09/23 In the past 12 months have y ou been in a relationship with a person who hurts, threatens, or tries to control you? No 09/24/2023 Sex and Gender Information Value Date Recorded Sex Assigned at Not on file Legal Sex Male 1:46 PM EST Gender Identity Not on file Sexual Orientation Not on file Last Filed Vital Signs Vital Sign Reading Time Taken Comments Blood Pressure 120/80 02/02/2025 3:19 PM EDT Pulse 80 02/02/2025 3:19 PM EDT Temperature 36.3 C (97.3 F) 02/02/2025 3:19 PM EDT Respiratory Rate - - Oxygen Saturation 98% 02/02/2025 3:19 PM EDT Inhaled Oxygen Concentration - - Weight 98.9 kg (218 lb) 02/02/2025 3:19 PM EDT Height 171.5 cm (5' 7.52 ) 02/02/2025 3:19 PM ED T Body Mass Index 33.62 02/02/2025 3:19 PM EDT Plan of Treatment Upcoming Encounters Date Type Department Care Team (Late st Contact Info) Description 03/10/2025 11:30 AM EDT Office Visit [facility] [address] [place] [address] Tiffany Alarcon MD [address] [place] [address], [address] [place] [address] [email or web address] Health Maintenance Due Date Last Done Comments DEPRESSION SCREENING 09/23/2024 09/24/2023 INFLUENZA VACCINE (#1) 2024 , 02/27/2023, 03/07/2022, Additional history exists LIPID PANEL 09/01/2027 08/31/2022, 04/0 11/2022, 09/20/2021, Additional history exists SCREENING FOR DIABETES 02/03/2028 02/02/2025, 2023 Adult Td,Tdap Booster 03/12/2033 03/12/2023 HEPATITIS C SCREENING Completed 09/26/2022, 023 HIV ONE-TIME SCREENING (18-65 YEARS) Completed 09/26/2022 COVID-19 VACCINE Completed 02/24/2024, , 03/12/2023, Additional history exists SMOKING STATUS SCREENING (Once After 26 Yrs) Completed 02/02/2025 HEPATITIS A VACCINES Aged Out No long er eligible based on patient's age to complete this topic HIB VACCINES Aged Out No longer eligi ble based on patient's age to complete this topic MENINGOCOCCAL VACCINES (ACWY) Aged Out No longer eligible based on patient's age to complete this topic MENINGOCOCCAL VACCINES (B) Aged Out N o longer eligible based on patient's age to complete this topic PNEUMOCOCCAL VACCINES (0-49 years) Aged Out No longer eligible based on patient's age to complete this topic Medical Devices Not on file Procedures Procedure Name Priority Date/Time Associated Diagnosis Comments COMPREHENSIVE METABOLIC PANEL Routine 02/02/2025 3:54 PM EDT Class 1 obesity due to excess calories without serious comorbidity with body mass index (BMI) of 33.0 to 33.9 in adult RAMIRO (obstructive sleep apnea) CBC Routine 02/02/2025 3:54 PM EDT Class 1 obesity due to excess calories without serious comorbidity with body mass index (BMI) of 33.0 to 33.9 in adult RAMIRO (obstructive sleep apnea) CBC AND DIFFERENTIAL Routine 12/25/2024 9:16 AM EDT BRBPR (bright red blood per rectum) COMPREHENSIVE METABOLIC PANEL Routine 12/25/2024 9:16 AM EDT BRBPR (bright red blood per rectum) HEPATITIS C ANTIBODY, QUALITATIVE Routine 09/26/2022 3:39 PM EDT Need for hepatitis C screening test LIPID PANEL Routine 08/31/2022 11:29 AM EDT Moderate mixed hyperlipidemia not requiring statin therapy from Last 3 Months or Most Recently Relevant to Health Maintenance Results * (ABNORMAL) Comprehensive metabolic panel (02/02/2025 3:54 PM EDT) Only the most recent of2 resultswithin the time period is included. SODIUM 140 133 - 146 mmol/L [facility] POTASSIUM 3.7 3.3 - 5.1 mmol/L [facility] CHLORIDE 102 96 - 108 mmol/L [facility] CO2 26 21 - 35 mmol/L [facility] BUN 9 6 - 19 mg/dL [facility] CREATININE 1.00 0.5 - 1.5 mg/dL [facility] GLUCOSE 116(H) 70 - 99 mg/dL [facility] ALBUMIN 4.5 3.9 - 4.8 g/dL [facility] TOTAL PROTEIN 7.8 6.5 - 8.0 g/dL [facility] CALCIUM 9.8 8.4 - 10.3 mg/dL [facility] ALKALINE PHOSPHATASE 80 39 - 117 U/L [facility] TOTAL BILIRUBIN 0.4 0.0 - 1.2 mg/dL [facility] AST 33 0 - 37 U/L [facility] ALT 35 0 - 40 U/L [facility] GLOBULIN 3.3 1 - 4.8 g/dL [facility] EGFR 96 >59 mL/min/1.7 3m2 [facility] Comment:Estimated glomerular filtration rate calculated using the CKD-EPI refit equation. ANION GAP 16 10 - 20 mmol/L [facility] Blood 02/02/2025 3:54 PM EDT 02/02/2025 3:58 PM EDT Dav Luevano DO LAB BLOOD ORDERABLES Final Resul t Performing Organization Address City/State/[facility] Co de Phone Number [facility] [address] [place] [address] * CBC (02/02/2025 3:54 PM EDT) WBC 8.02 4.00 - 11.00 K/uL [facility] RBC 4.87 4.50 - 5.90 M/uL [facility] HGB 14.1 13.5 - 17.5 g/dL [facility] HCT 43.7 41.0 - 53.0 % [facility] PLT 289 150 - 450 K/uL [facility] MCV 89.7 80.0 - 100.0 fL [facility] MCH 29.0 27.0 - 31.0 pg [facility] MCHC 32.3 32.0 - 36.0 g/dL [facility] RDW 12.9 11.5 - 14.5 % [facility] MPV 11.6 8.4 - 12.0 fL [facility] NRBC 0.00 0.00 /100 WBCs [facility] ABSOLUTE NRBC 0.00 0.00 K/uL [facility] Blood 02/02/2025 3:54 PM EDT 02/02/2025 3:58 PM EDT us Dav Luevano DO LAB BLOOD ORDERABLES Final Resul t [facility] [address] [place] [address] * (ABNORMAL) CBC and differential (12/25/2024 9:16 AM EDT) WBC 6.94 4.00 - 11.00 K/uL [facility] RBC 5.03 4.50 - 5.90 M/uL [facility] HGB 14.5 13.5 - 17.5 g/dL [facility] HCT 45.6 41.0 - 53.0 % [facility] PLT 284 150 - 450 K/uL [facility] MCV 90.7 80.0 - 100.0 fL [facility] MCH 28.8 27.0 - 31.0 pg [facility] MCHC 31.8(L) 32.0 - 36.0 g/dL [facility] RDW 12.8 11.5 - 14.5 % [facility] MPV 11.0 8.4 - 12.0 fL [facility] NRBC 0.00 0.00 /100 WBCs [facility] ABSOLUTE NRBC 0.00 0.00 K/uL [facility] DIFF METHOD Auto [facility] NEUTS 62.8 48.0 - 76.0 % [facility] LYMPHS 27.7 18.0 - 41.0 % [facility] MONOS 7.6 4.0 - 11.0 % [facility] EOS 1.0 0.0 - 5.0 % [facility] BASOS 0.6 0.0 - 1.5 % [facility] Granulocytes, immature (%) 0.3 0.0 - 0.9 % [facility] ABSOLUTE NEUTS 4.36 1.92 - 7.60 K/uL [facility] ABSOLUTE LYMPHS 1.92 0.72 - 4.10 K/uL [facility] ABSOLUTE MONOS 0.53 0.16 - 1.10 K/uL [facility] ABSOLUTE EOS 0.07 0.00 - 0.50 K/uL [facility] ABSOLUTE BASOS 0.04 0.00 - 0.15 K/uL [facility] Granulocytes, immature 0.02 0.00 - 0.09 K/uL [facility] Blood 12/25/2024 9:1 6 AM EDT 12/25/2024 9:24 AM EDT us Johanny nEamorado TRAVELING PASSENGER AGENT LAB BLOOD ORDERABLES Final Re sult Performing Organization Address City/[facility]/ZIP Co de Phone Number [address] [address] * Hepatitis C antibody, qualitative (09/26/2022 3:39 PM EDT) HCV NON-REACTIV E NON-REACTI VE [facility] Blood 09/26/2022 3:39 PM EDT 09/26/2022 3:41 PM EDT us Tiffany Alarcon MD LAB BLOOD ORDERABLES Fin al Result Performing Organization Address City/[facility]/ZIP Co de Phone Number [address] [address] * (ABNORMAL) Lipid panel (08/31/2022 11:29 AM EDT) HDL 32 mg/dL [facility] Comment: Interpretation <40 mg/dL: Low HDL cholesterol (major risk factor for CHD) Greater than or equal to 60 mg/dL: High HDL cholesterol ( negative risk factor for CHD) HDL - cholesterol is affected by a number of factors, e.g. smoking, excerise, hormones, sex and age. CHOLESTEROL 232 0 - 240 mg/dL [facility] TRIGLYCERIDES 222(H) 30 - 160 mg/dL [facility] LDL 156(H) 50 - 129 mg/dL [facility] Comment: LDL levels in terms of risk for coronary heart disease: <100 mg/dL: Optimal 100-129 mg/dL: Near or above optimal 130-159 mg/dL: Borderline high 160-189 mg/dL: High >190 mg/dL: Very High CARDIAC RISK RATIO 7.3(H) 3.4 - 5.0 C [facility] Blood 08/31/2022 11:2 9 AM EDT 08/31/2022 11:39 AM EDT us Tiffany Alarcon MD LAB BLOOD ORDERABLES Fin al Result [facility] [address] [place] [address] from Last 3 Months or Most Recently Relevant to Health Maintenance Insurance [facility] PPO EPO [facility] PPO EPO [facility]PO [facility]PO [facility] EPO [facility] PPO EPO Care Teams Chain Testing Machine Operator Relationship Specialty Start Date End Date Tiffany Alarcon MD [address] [facility] [address] [place] [address] [email or web address] PCP - General Family Medicine 12/26/22 Tiffany Alarcon MD [address] [place] [address] [address] [place] [address] [email or web address] Insurance Assigned Provider 08/31/23 Additional Source Comments The information contained in this document represents components of the legal health record. It is not the complete legal health record.[facility]
--- OUTSIDE RECORDS SUMMARY | 2025-02-18 17:31 | XMS_ITS | Encounter Summary ---
Author Organization [facility] Address [address] [place] [address] [place] [address] Phone Care Team Providers Care Heating And Refrigeration Inspector Name Role Phone Tiffany Alarcon MD Unavailable [phone] Tiffany Alarcon MD Primary Care Provider + Encounter Details Date Type Department Care Team (Latest Contact Info) Description 03/21/2023 Transcribe Orders [facility] [address] [address] Johanny Montalvo PA-C [address], [address] [place] [address] Fatty liver (Primary Dx); Elevated LFTs; Bloating [...] high school, GED, job training, learning the Turkish language, technical skills, or developing parenting skills)? [...] you moved in the past 12 sat ths? One time 09/20/2021 Paying for Meds [...] Upcoming Encounters Date Type Department Care Team ([facility] Contact Info) Description 03/10/2025 11:30 AM EDT Office Visit [facility] [address] [place] [address] Tiffany Alarcon MD [address] [place] [address], [address] [place] [address] documented as of this encounter Results * PT-INR (03/21/2023 9:27 AM EDT) PT 11.2 10.2 - 12.9 sec [facility] INR 1.0 0.9 - 1.1 [facility] Comment:Therapeutic range fo r oral Vitamin K antagonists: 2.0-3.5 Blood 03/21/2023 9:27 AM EDT 03/21/2023 9:32 AM EDT Johanny Montalvo PA-C LAB BLOOD ORDERABLES Final Resu lt Performing Organization Address [facility]/ZIP Co de Phone Number [address] [address] * Hemoglobin A1c (03/21/2023 9:27 AM EDT) HEMOGLOBIN A1C 5.6 4.3 - 5.8 % [facility] Blood 03/21/2023 9:27 AM EDT 03/21/2023 9:32 AM EDT Johanny Montalvo PA-C LAB BLOOD ORDERABLES Final Resu lt Performing Organization Address [facility] Co de Phone Number [address] [address] * (ABNORMAL) Comprehensive metabolic panel (03/21/2023 9:27 AM EDT) SODIUM 141 133 - 146 mmol/L [facility] POTASSIUM 4.1 3.3 - 5.1 mmol/L [facility] CHLORIDE 102 96 - 108 mmol/L [facility] CO2 29 21 - 35 mmol/L [facility] BUN 9 6 - 19 mg/dL [facility] CREATININE 0.80 0.5 - 1.5 mg/dL [facility] GLUCOSE 120(H) 70 - 99 mg/dL [facility] ALBUMIN 4.6 3.9 - 4.8 g/dL [facility] TOTAL PROTEIN 8.0 6.5 - 8.0 g/dL [facility] CALCIUM 9.7 8.4 - 10.3 mg/dL [facility] ALKALINE PHOSPHATASE 90 39 - 117 U/L [facility] TOTAL BILIRUBIN 0.4 0.0 - 1.2 mg/dL [facility] AST 49(H) 0 - 37 U/L [facility] ALT 78(H) 0 - 40 U/L [facility] GLOBULIN 3.4 1 - 4.8 g/dL [facility] EGFR 114 >59 mL/min/1.7 3m2 [facility] Comment:Estimated glomerular filtration rate calculated using the CKD-EPI refit equation. ANION GAP 14 10 - 20 mmol/L [facility] Blood 03/21/2023 9:27 AM EDT 03/21/2023 9:32 AM EDT us Johanny Montalvo PA-C LAB BLOOD ORDERABLES Final Resu lt Performing Organization Address City/[facility] Co de Phone Number [address] [address] * (ABNORMAL) CBC (03/21/2023 9:27 AM EDT) WBC 6.48 4.00 - 11.00 K/uL [facility] RBC 4.99 4.23 - 5.82 M/uL [facility] HGB 14.2 13.4 - 17.5 g/dL [facility] HCT 45.0 37.0 - 51.0 % [facility] PLT 270 140 - 430 K/uL [facility] MCV 90.2 78.0 - 97.0 fL [facility] MCH 28.5 25.0 - 33.0 pg [facility] MCHC 31.6(L) 32.0 - 36.0 g/dL [facility] RDW 12.6 11.0 - 15.0 % [facility] MPV 11.1 8.4 - 12.8 fl [facility] Blood 03/21/2023 9:27 AM EDT 03/21/2023 9:32 AM EDT Johanny Montalvo PA-C LAB BLOOD ORDERABLES Final Resu lt Performing Organization Address [facility]/ZIP Co de Phone Number [address] [address] * AFP (non-maternal specimens) (03/21/2023 9:27 AM EDT) AFP (NON-MATERNAL) 2.0 <7.9 ng/mL [facility] Comment: Test Methodology Lennox [id number] Patient results determined by assays using different manufacturers or methods may not be comparable. Blood 03/21/2023 9:27 AM EDT 03/21/2023 9:32 AM EDT us Johanny Montalvo PA-C LAB BLOOD ORDERABLES Final Resu lt [facility] [address] [place] [address] documented in this encounter Visit Diagnoses Diagnosis Fatty liver- Primary Other chronic nonalcoholic liver disease Elevated LFTs Other abnormal blood chemistry Bloating Flatulence, eructation, and gas pain documented in this encounter Additional Health Concerns Assessment Noted Time PHQ-2 Depression Total Score: 1 09/27/19 23 2:51 PM EDT documented as of this encounter Care Teams Heating And Refrigeration Inspector Relationship Specialty Start Date End Date Tiffany Alarcon MD [address] [place] [address] [address] [place] [address] PCP - General Family Medicine 12/26/22 Tiffany Alarcon MD [address] [place] [address] 7 [place] [address] Insurance Assigned Provider 08/31/23 documented as of this encounter Additional Source Comments The information contained in this document represents components of the legal health record. It is not the complete legal health record.[facility]
--- OUTSIDE RECORDS SUMMARY | 2025-02-18 17:31 | XMS_ITS | Encounter Summary ---
Author Organization [facility] Address [address] [place] [address] [place] [address] Phone Care Team Providers Care City Secretary Name Role Phone Tiffany Alarcon MD Unavailable [phone] Tiffany Alarcon MD Primary Care Provider + Encounter Details Date Type Department Care Team (Latest Contact Info) Description 09/20/2023 Transcribe Orders [facility] Laboratory [address]nd [place] [address] Romeo Read MD [address] [facility] 2 [place] [address] [email or web address] Moderate mixed hyperlipidemia not requiring statin therapy (Primary Dx); Fatty liver Social History Tobacco Use Types Packs/Day Years [...] housing situation today? I have sandra worthy 09/24/2023 How many times have you move [...] Description 03/10/2025 11:30 AM EDT Office Visit [facility] Medicine [address] [place] [address] Tiffany Alarcon MD [address] [facility], [address] [place] [address] [email or web address] documented as of this encounter Results * (ABNORMAL) Comprehensive metabolic panel (09/20/2023 9:01 AM EDT) SODIUM 142 133 - 146 mmol/L [facility] POTASSIUM 4.2 3.3 - 5.1 mmol/L [facility] CHLORIDE 105 96 - 108 mmol/L [facility] CO2 25 21 - 35 mmol/L [facility] BUN 10 6 - 19 mg/dL [facility] CREATININE 0.70 0.5 - 1.5 mg/dL [facility] GLUCOSE 94 70 - 99 mg/dL [facility] ALBUMIN 4.3 3.9 - 4.8 g/dL [facility] TOTAL PROTEIN 7.3 6.5 - 8.0 g/dL [facility] CALCIUM 9.4 8.4 - 10.3 mg/dL [facility] ALKALINE PHOSPHATASE 80 39 - 117 U/L [facility] TOTAL BILIRUBIN 0.5 0.0 - 1.2 mg/dL [facility] AST 54(H) 0 - 37 U/L [facility] ALT 105(H) 0 - 40 U/L [facility] GLOBULIN 3.0 1 - 4.8 g/dL [facility] EGFR 118 >59 mL/min/1.7 3m2 [facility] Comment:Estimated glomerular filtration rate calculated using the CKD-EPI refit equation. ANION GAP 16 10 - 20 mmol/L [facility] Blood 09/20/2023 9:01 AM EDT 09/20/2023 9:07 AM EDT us Romeo Read MD LAB BLOOD ORDERABLES Final Result [facility] [address] [place] [address] * (ABNORMAL) CBC (09/20/2023 9:01 AM EDT) WBC 7.50 4.00 - 11.00 K/uL [facility] RBC 5.02 4.23 - 5.82 M/uL [facility] HGB 14.2 13.4 - 17.5 g/dL [facility] HCT 44.5 37.0 - 51.0 % [facility] PLT 231 140 - 430 K/uL [facility] MCV 88.6 78.0 - 97.0 fL [facility] MCH 28.3 25.0 - 33.0 pg [facility] MCHC 31.9(L) 32.0 - 36.0 g/dL [facility] RDW 13.1 11.0 - 15.0 % [facility] MPV 11.4 8.4 - 12.8 fl [facility] Blood 09/20/2023 9:01 AM EDT 09/20/2023 9:07 AM EDT us Romeo Read MD LAB BLOOD ORDERABLES Final Result Performing Organization Address City/State/[facility] Co de Phone Number [facility] [address] [place] [address] documented in this encounter Visit Diagnoses Diagnosis Moderate mixed hyperlipidemia not requiring statin therapy- Primary Fatty liver Other chronic nonalcoholic liver disease documented in this encounter Additional Health Concerns Assessment Noted Time PHQ-2 Depression Total Score: 1 09/27/19 23 2:51 PM EDT documented as of this encounter Care Teams City Secretary Relationship Specialty Start Date End Date Tiffany Alarcon MD [address] [facility], [facility] [address] [place] [address] PCP - General Family Medicine 12/26/22 Tiffany Alarcon MD [address] [facility], [address] [place] [address] Insurance Assigned Provider 08/31/23 documented as of this encounter Additional Source Comments The information contained in this document represents components of the legal health record. It is not the complete legal health record.[facility]
--- OUTSIDE RECORDS SUMMARY | 2025-02-18 17:31 | XMS_ITS | Encounter Summary ---
Author Organization [facility] Address [address] [place] [address] [place] [address] Phone Care Team Providers Care [employer] Information [employer] Officer Name Role Phone Tiffany Alarcon MD Unavailable [phone] Tiffany Alarcon MD Primary Care Provider + Reason for Referral * Molecular Pathology - Closed Specialty Diagnoses / Procedures Referred By Janak andrews Referred To Contact Diagnoses Fatty liver Elevated LFTs Procedures Hemochromatosis Gene Analysis Johanny Montalvo PA-C Phone: tel: fax: [email or web address] Referral ID Status Reason Start Date Expiration Date Visits Re quested Visits Authorized [id number] Closed 12/26/2022 12/26/2023 1 1 Encounter Details Date Type Department Care Team (Latest Contact Info) Description 12/26/2022 Transcribe Orders [facility] Laboratory [address] [address] Johanny Montalvo PA-C [address] [place] [address] [email or web address] Fatty liver (Primary Dx); Elevated LFTs Social [...] high school, GED, job training, learning the Bulgarian language, technical skills, or developing parenting skills)? [...] Upcoming Encounters Date Type Department Care Team ([facility] st Contact Info) Description 03/10/2025 11:30 AM EDT Office Visit [facility] Family Medicine [address] [place] [address] Tiffany Alarcon MD [address] [facility], [address] [place] [address] [email or web address] documented as of this encounter Results * Ferritin (12/26/2022 10:14 AM EDT) FERRITIN 165 30 - 400 ug/L [facility] Blood 12/26/2022 10:1 4 AM EDT 12/26/2022 10:23 AM EDT us Johanny Montalvo PA-C LAB BLOOD ORDERABLES Final Resu lt Performing Organization Address [facility]/ZIP Co de Phone Number [address] [address] * TSH (12/26/2022 10:14 AM EDT) TSH 1.19 0.27 - 4.20 uIU/mL [facility] Blood 12/26/2022 10:1 4 AM EDT 12/26/2022 10:23 AM EDT us Johanny Montalvo PA-C LAB BLOOD ORDERABLES Final Resu lt Performing Organization Address [facility] Co de Phone Number [address] [address] * Iron and iron binding capacity (12/26/2022 10:14 AM EDT) IRON 83 45 - 160 ug/dL [facility] IRON BINDING CAPACITY 363 228 - 428 ug/dL [facility] TRANSFERRIN SATURAT. 23 20 - 55 % [facility] Blood 12/26/2022 10:1 4 AM EDT 12/26/2022 10:23 AM EDT Johanny Montalvo PA-C LAB BLOOD ORDERABLES Final Resu lt Performing Organization Address City/[facility]/ZIP Co de Phone Number [facility] [address] [place] [address] * Lipase (12/26/2022 10:14 AM EDT) LIPASE 39 16 - 63 U/L [facility] Blood 12/26/2022 10:1 4 AM EDT 12/26/2022 10:23 AM EDT us Johanny Montalvo PA-C LAB BLOOD ORDERABLES Final Resu lt [facility] [address] [place] [address] * Hemochromatosis Gene Analysis (12/26/2022 10:14 AM EDT) HFE Gene analysis SEE NOTE 3 05:22 PM [facility] DPT OF LAB MED AND PAT+ Comment: (NOTE) Test Result Flag Unit RefValue Hereditary Hemochromatosis HFE Test Result Summary NEGATIVE Result SEE NOTE C282Y: Not detected. H63D: Not detected. Interpretation SEE NOTE This result reduces the risk but does not rule out either a diagnosis of or predisposition for hereditary hemochromatosis (HH). This assay does not rule out the presence of other disease-causing variants in the HFE gene or in other genes associated with hemochromatosis. Non-HFE-HH causes should also be considered. These results should be interpreted in the context of clinical findings, family history, and other laboratory testing (e.g. serum transferrin-iron saturation and serum ferritin). Genetic testing and other laboratory testing of an affected family member can determine if this result is of predictive value for this individual. A genetic consultation may be of benefit. ADDITIONAL INFORMATION An online research opportunity called GenomeConnect (genomeconnect.org), a project of [employer], is available for the recipient of this genetic test. This patient registry collects de-identified genetic and health information to advance the knowledge of genetic variants. [facility] is a collaborator of [employer]. This may not be applicable for all tests. Test results should be interpreted in the context of clinical findings, family history, and other laboratory data. Misinterpretation of results may occur if the information provided is inaccurate or incomplete. Rare polymorphisms exist that could lead to false-negative or false-positive results. If results obtained do not match the clinical findings, additional testing should be considered. Bone Marrow transplants from allogenic donors will interfere with testing. Call [facility] for instructions for testing patients who have received a bone marrow transplant. One or more in silico tools were used to assist in the interpretation of these results. These tools are updated regularly and predictions for a given variant may change. Additionally, the predictability of these tools for the determination of pathogenicity is currently unvalidated. This test was developed and its performance characteristics determined by [facility] in a manner consistent with CLIA requirements. This test has not been cleared or approved by the U.S. Food and Drug Administration. Specimen WB Whole Blood Method SEE NOTE Droplet Digital Polymerase Chain Reaction (ddPCR) was used to test for the following three variants in the HFE gene; C282Y, H63D, and S65C. Because of the minimal effect on iron metabolism associated with the S65C variant, it is only reported when it is found with the C282Y variant (i.e. if the patient has the C282Y/S65C genotype). Released By Molina Heredia MD Blood 12/26/2022 10:1 4 AM EDT 12/26/2022 10:22 AM EDT us Johanny Montalvo PA-C LAB BLOOD ORDERABLES Final Resu lt [facility] DPT OF LAB MED AND PAT+ [address] [place] [address] * Hepatitis B surface antigen (12/26/2022 10:14 AM EDT) HBV SURFACE ANTIGEN NON-REACTI VE NON-REACTI VE [facility] Blood 12/26/2022 10:1 4 AM EDT 12/26/2022 10:23 AM EDT us Johanny Montalvo PA-C LAB BLOOD ORDERABLES Final Resu lt Performing Organization Address City/[facility]/ZIP Co de Phone Number [address] [address] * (ABNORMAL) Comprehensive metabolic panel (12/26/2022 10:14 AM EDT) SODIUM 142 133 - 146 mmol/L [facility] POTASSIUM 4.4 3.3 - 5.1 mmol/L [facility] CHLORIDE 105 96 - 108 mmol/L [facility] CO2 27 21 - 35 mmol/L [facility] BUN 9 6 - 19 mg/dL [facility] CREATININE 0.70 0.5 - 1.5 mg/dL [facility] GLUCOSE 92 70 - 99 mg/dL [facility] ALBUMIN 4.3 3.9 - 4.8 g/dL [facility] TOTAL PROTEIN 7.7 6.5 - 8.0 g/dL [facility] CALCIUM 9.6 8.4 - 10.3 mg/dL [facility] ALKALINE PHOSPHATASE 78 39 - 117 U/L [facility] TOTAL BILIRUBIN 0.5 0.0 - 1.2 mg/dL [facility] AST 45(H) 0 - 37 U/L [facility] ALT 54(H) 0 - 40 U/L [facility] GLOBULIN 3.4 1 - 4.8 g/dL [facility] EGFR 119 >59 mL/min/1.7 3m2 [facility] Comment:Estimated glomerular filtration rate calculated using the CKD-EPI refit equation. ANION GAP 14 10 - 20 mmol/L [facility] Blood 12/26/2022 10:1 4 AM EDT 12/26/2022 10:23 AM EDT us Johanny Montalvo PA-C LAB BLOOD ORDERABLES Final Resu lt Performing Organization Address City/[facility]/ZIP Co de Phone Number [address] [address] * Ceruloplasmin (12/26/2022 10:14 AM EDT) CERULOPLASMIN 22 20 - 60 mg/dL [facility] Blood 12/26/2022 10:1 4 AM EDT 12/26/2022 10:23 AM EDT us Johanny Montalvo PA-C LAB BLOOD ORDERABLES Final Resu lt [address] [address] * Immunoglobulin A (12/26/2022 10:14 AM EDT) IgA 264 70 - 400 mg/dL [facility] Blood 12/26/2022 10:1 4 AM EDT 12/26/2022 10:23 AM EDT us Johanny Montalvo PA-C LAB BLOOD ORDERABLES Final Resu lt Performing Organization Address [facility]/ZIP Co de Phone Number [facility] [address] [place] [address] * Tissue transglutaminase IgA (12/26/2022 10:14 AM EDT) TTG IGA ANTIBODY <1.2 <4.0 (Negative) U/mL [facility] [address] [facility] Blood 12/26/2022 10:1 4 AM EDT 12/26/2022 10:22 AM EDT Johanny Montalvo PA-C LAB BLOOD ORDERABLES Final Resu lt Performing Organization Address City/[facility]/ZIP Co de Phone Number [facility] [address] [place] [address] * Serum protein electrophoresis W/O Immunoglobulins and Immunofixation (12/26/2022 10:14 AM EDT) TOTAL PROTEIN 7.2 6.3 - 7.9 g/dL [facility] [address] Albumin 3.5 3.4 - 4.7 g/dL [facility] DR Alpha-1 Globulin 0.2 0.1 - 0.3 g/dL [facility] DR Alpha-2 Globulin 1.0 0.6 - 1.0 g/dL [facility] DR Beta-Globulin 1.2 0.7 - 1.2 g/dL [facility] DR Gamma-Globulin 1.4 0.6 - 1.6 g/dL [facility] A/G Ratio 0.92 [facility] DR [place] spike Test component not applicable or not reported. g/dL [facility] M spike Test component not applicable or not reported. g/dL [facility] Impression SEE NOTE [facility] Comment: (NOTE) No apparent monoclonal protein on serum electrophoresis. Blood 12/26/2022 10:1 4 AM EDT 12/26/2022 10:22 AM EDT Johanny Montalvo PA-C LAB BLOOD ORDERABLES Final Resu lt [facility] [address] [place] [address] * Smooth Muscle Antibody (12/26/2022 10:14 AM EDT) SMOOTH MUSCLE AB NEGATIVE AT 1:20 [facility] Comment: Debora La M.D., Director Clinical Immunology Laboratory [id number] Normal: Negative at 1:20 Blood 12/26/2022 10:1 4 AM EDT 12/26/2022 10:23 AM EDT Johanny Montalvo PA-C LAB BLOOD ORDERABLES Final Resu lt [facility] [address] [place] [address] * Antinuclear antibody (WALESKA) (12/26/2022 10:14 AM EDT) [place] SCREEN ON HEP 2 Negative Negative [facility] Blood 12/26/2022 10:1 4 AM EDT 12/26/2022 10:23 AM EDT Johanny SCHAEFFER-Ivan LAB BLOOD ORDERABLES Final Resu lt Performing Organization Address City/[facility]/ZIP Co de Phone Number [facility] [address] [place] [address] * Anti-Mitochondrial Antibody (AMA) (12/26/2022 10:14 AM EDT) MITOCHONDRIAL AB NEGATIVE AT 1:20 [facility] Comment: Debora La M.D., Director Clinical Immunology Laboratory [id number] Normal: Negative at 1:20 Blood 12/26/2022 10:1 4 AM EDT 12/26/2022 10:23 AM EDT Johanny SCHAEFFER-Ivan LAB BLOOD ORDERABLES Final Resu lt Performing Organization Address City/[facility]/ZIP Co de Phone Number [address] [address] * Kbfbw-0-vyojgnevicp phenotyping (12/26/2022 10:14 AM EDT) ALPHA 1 ANTITRYPSIN 103 100 - 190 mg/dL [facility] Comment: (NOTE) ADDITIONAL INFORMATION Method: Nephelometry A1A PHENOTYPE MODERATELY SUSCEPTIBLE bands [facility] Comment: (NOTE) Heterozygous for M and S isoforms. This phenotype is usually associated with normal axkpl-9-szmiyhzlori concentrations. ADDITIONAL INFORMATION Method: Isoelectric Focusing, This assay identifies the phenotype of the circulating cmudo-6-tcpxgfnscxo (A1A) protein. If the patient is on replacement therapy or has been recently transfused, the phenotype will detect patient and replacement or transfused plasma A1A protein. This test also cannot detect a null allele which could be responsible for an A1A deficiency. Blood 12/26/2022 10:1 4 AM EDT 12/26/2022 10:22 AM EDT us Johanny Montalvo PA-C LAB BLOOD ORDERABLES Final Resu lt [facility] [address] [place] [address] documented in this encounter Visit Diagnoses Diagnosis Fatty liver- Primary Other chronic nonalcoholic liver disease Elevated LFTs Other abnormal blood chemistry documented in this encounter Additional Health Concerns Assessment Noted Time PHQ-2 Depression Total Score: 1 09/27/19 23 2:51 PM EDT documented as of this encounter Care Teams [employer] Information [employer] Officer Relationship Specialty Start Date End Date Tiffany Alarcon MD [address] [place] [address] [address] [place] [address] PCP - General Family Medicine 12/26/22 Tiffany Alarcon MD [address] [place] [address], [facility] [address] [place] [address] Insurance Assigned Provider 08/31/23 documented as of this encounter Additional Source Comments The information contained in this document represents components of the legal health record. It is not the complete legal health record.[facility]
== END 2025-02-18 12:45 | disposition home or self-care (01) ==
LOC: HO.US 12:44
PROVIDERS: PCP Family Medicine; Visit Provider Student in an Organized Health Care Education/Training Program
DX: I87.2 Venous insufficiency (chronic) (peripheral) (principal); Z98.890 Other specified postprocedural states
CPT/HCPCS: 93926